=== PATIENT | male | born 1955 | race Native Hawaiian/Other Pacific Islander ===

== ENCOUNTER 2022-03-29 20:42 | Emergency (ER) | payer OTHER ==
[~2022-03-29] VITALS: Ht 175.3 cm; Wt 90.7 kg
[2022-03-29 21:14] LABS: PLATELET COUNT 208 K/uL (142-355)
[2022-03-29 21:26] LABS: POTASSIUM 2.9 mmol/L (3.6-5.2)
[2022-03-30 00:35] VITALS: BP 121/66; TEMP 97.9
== END 2022-03-30 00:35 | disposition short-term general hospital (02) ==
LOC: ED 20:54
PROVIDERS: Emergency Medicine
DX: I21.19 ST elevation (STEMI) myocardial infarction involving other coronary artery of inferior wall (principal); I10 Essential (primary) hypertension; I25.2 Old myocardial infarction; I25.10 Atherosclerotic heart disease of native coronary artery without angina pectoris; Z11.52 Encounter for screening for COVID-19
CPT/HCPCS: 36415; 80053; 82550; 84484; 85027; 85610; 85730; 87635; 92977; 93005; 96365; 96366; 96375; 96376; 99285; J1644; J2060; J2270; J2405; J3101; J3490; U0003

== ENCOUNTER 2022-04-07 15:14 | Emergency (ER) | payer OTHER ==
[~2022-04-07] VITALS: Ht 175.3 cm; Wt 90.7 kg
[2022-04-07 15:20] VITALS: TEMP 97.7
[2022-04-07 16:34] VITALS: BP 139/81
== END 2022-04-07 16:41 | disposition home or self-care (01) ==
LOC: ED 15:14
PROC: 2W3MX1Z Immobilization of Left Lower Extremity using Splint (ICD-10-PCS; principal; 2022-04-07)
DX: M25.562 Pain in left knee (principal); Z98.890 Other specified postprocedural states
CPT/HCPCS: 96372; 99283; J1885; J2930

== ENCOUNTER 2022-06-24 11:30 | Emergency (ER) | payer OTHER ==
[~2022-06-24] VITALS: Ht 175.3 cm; Wt 90.7 kg
[2022-06-24 11:40] VITALS: TEMP 98
[2022-06-24 12:36] LABS: PLATELET COUNT 295 K/uL (142-355)
[2022-06-24 12:43] LABS: POTASSIUM 3.6 mmol/L (3.6-5.2)
[2022-06-24 12:55] LABS: PARTIAL THROMBOPLASTIN TIME 28.1 SECONDS (24.5-33.6)
[2022-06-24 18:31] VITALS: BP 117/68
== END 2022-06-24 18:35 | disposition home or self-care (01) ==
LOC: ED 11:30
PROVIDERS: Emergency Medicine Emergency Medical Services
DX: U07.1 COVID-19 (principal); J12.82 Pneumonia due to coronavirus disease 2019; R06.02 Shortness of breath; Z98.890 Other specified postprocedural states
CPT/HCPCS: 36415; 36600; 80053; 82728; 82805; 83735; 84484; 85027; 85379; 85610; 85730; 86140; 87040; 87635; 93005; 96360; 96365; 96366; 96375; 99284; J1956; J2930; Q9963; U0003

== ENCOUNTER 2022-08-19 13:30 | Outpatient (CLI) | payer OTHER | END 2022-08-19 20:02 | disposition home or self-care (01) | LOC: RAD 13:30 | PROVIDERS: ATTEND Physician Assistant | DX: M25.511 Pain in right shoulder (principal) ==

== ENCOUNTER 2022-09-10 12:35 | Outpatient (CLI) | payer OTHER | END 2022-09-10 19:39 | disposition home or self-care (01) | LOC: MRI 12:35 | PROVIDERS: ATTEND Physician Assistant | DX: M75.121 Complete rotator cuff tear or rupture of right shoulder, not specified as traumatic (principal) ==

== ENCOUNTER 2022-12-05 12:01 | Outpatient (CLI) | payer OTHER ==
[2022-12-05 12:42] LABS: PLATELET COUNT 211 K/uL (142-355)
[2022-12-05 13:14] LABS: POTASSIUM 3.4 mmol/L (3.6-5.2)
== END 2022-12-05 19:19 | disposition home or self-care (01) ==
LOC: LAB 12:01
PROVIDERS: ATTEND Internal Medicine
DX: I25.10 Atherosclerotic heart disease of native coronary artery without angina pectoris (principal); I10 Essential (primary) hypertension; E78.49 Other hyperlipidemia
CPT/HCPCS: 80053; 80061; 81002; 84439; 84443; 85027

== ENCOUNTER 2023-02-07 09:00 | Outpatient (CLI) | payer OTHER ==
[2023-02-07 09:38] LABS: PLATELET COUNT 232 K/uL (142-355)
[2023-02-07 09:42] LABS: POTASSIUM 3.2 mmol/L (3.6-5.2)
== END 2023-02-07 19:20 | disposition home or self-care (01) ==
LOC: LABW 09:00
PROVIDERS: ATTEND Orthopaedic Surgery Sports Medicine
DX: M25.511 Pain in right shoulder (principal); M19.011 Primary osteoarthritis, right shoulder; M75.121 Complete rotator cuff tear or rupture of right shoulder, not specified as traumatic; Z79.899 Other long term (current) drug therapy; Z13.228 Encounter for screening for other metabolic disorders; Z01.810 Encounter for preprocedural cardiovascular examination; Z01.812 Encounter for preprocedural laboratory examination; Z13.1 Encounter for screening for diabetes mellitus; Z13.6 Encounter for screening for cardiovascular disorders; I10 Essential (primary) hypertension; F17.210 Nicotine dependence, cigarettes, uncomplicated; Z79.01 Long term (current) use of anticoagulants; Z79.82 Long term (current) use of aspirin; E11.65 Type 2 diabetes mellitus with hyperglycemia; Z79.4 Long term (current) use of insulin; R68.89 Other general symptoms and signs
CPT/HCPCS: 36415; 80053; 83036; 84134; 85027; 85610; 85652; 86140

== ENCOUNTER 2023-03-02 10:30 | Emergency (ER) | payer OTHER ==
[~2023-03-02] VITALS: Ht 175.3 cm; Wt 93.4 kg
[2023-03-02 10:35] VITALS: BP 172/86; TEMP 98.3
== END 2023-03-02 11:41 | disposition home or self-care (01) ==
LOC: ED 10:30
DX: M54.9 Dorsalgia, unspecified (principal)
CPT/HCPCS: 96372; 99282; J1885

== ENCOUNTER 2023-03-06 11:42 | Outpatient (CLI) | payer OTHER | END 2023-03-06 19:40 | disposition home or self-care (01) | LOC: RAD 11:42 | PROVIDERS: ATTEND Internal Medicine | DX: M51.16 Intervertebral disc disorders with radiculopathy, lumbar region (principal) ==